=== PATIENT | male | born 1965 | race Caucasian/White ===

== ENCOUNTER 2019-01-11 05:20 | Emergency (ER) | payer MEDICAID, OTHER ==
[2019-01-11 06:45] LABS: ABS Eosinophils 0.1 10^3/ul (0-0.6); ABS Lymphocytes 1.7 10^3/ul (1.0-4.8); ABS Monocytes 0.6 10^3/ul (0-0.8); ABS Neutrophils 3.9 10^3/ul (1.5-7.7); Eosinophil % 1.1 %; Hematocrit 41 % (42-52); Hemoglobin 14.3 g/dL (14.0-18.0); Lymphocyte % 27.4 %; Mean Corpuscular HGB Conc 35 g/dL (31-36); Mean Corpuscular Hemoglobin 32 pg (27-31); Mean Corpuscular Volume 94 fL (80-94); Nucleated Red Blood Cells % 0.2; Red Blood Count 4.41 10^6 /uL (4.18-5.48); Red Cell Distribution Width 14 % (10-15); White Blood Count 6.2 10^3/uL (3.5-10.8)
[2019-01-11 06:49] LABS: INR 1.14 (0.82-1.09)
--- NOTE | 2019-01-11 06:53 | ED ---
HPI Chest Pain - HPI Summary HPI Summary: This patient is a 53-year-old male presenting to the ED with midsternal chest pain 1 week. Patient denies any shortness of breath. He states the pain is rated at 8/10, aching and stabbing intermittently. He states it is worse with ambulation, but not necessarily improved with rest. He believes he strained a muscle. Denies any history of hypertension, hypercholesterolemia. Strong family history of hypertension and PA. He states he takes no medications and is otherwise healthy. Symptoms are not better or worse with positioning. He has not taken any medication [id number] for relief. He states the symptoms have been intermittent over the past week, however has been present approximately every day. He believes this is a muscle injury as he feels tenderness to palpation over to the left side. Denies any alcohol use, patient is a heavy smoker. Denies any illicit drug use. - History of Current Complaint Chief Complaint: EDChestPainROMI Time Seen by Provider: 01/11/19 06:03 Hx Obtained From: Patient Onset/Duration: Started Days Ago Timing: Intermittent, Lasting Minutes Initial Severity: Moderate Current Severity: Moderate Pain Intensity: 8 Pain Scale Used: 0-10 Numeric Chest Pain Location: Discrete at: Chest Pain Radiates: No Character: Exertion - worse Aggravating Factor(s): Nothing Alleviating Factor(s): Nothing Associated Signs and Symptoms: Positive: Chest Pain - Risk Factors Pulmonary Embolism Risk Factors: Negative TAD Risk Factors: Negative - Allergy/Home Medications Allergies/Adverse Reactions: Allergies Allergy/AdvReac Type Severity Reaction Status Date / Time MS Penicillins [PCN] Allergy Severe Rash And Verified 01/11/19 08:48 Itching MS Morphine [Morphine] Allergy redness Verified 01/11/19 08:48 and itching local to injection site MS Codeine [Codeine] AdvReac Intermediate GI Upset Verified 01/11/19 08:48 PMH/Surg Hx/FS Hx/Imm Hx Previously Healthy: Yes Endocrine/Hematology History: Denies: Hx Anticoagulant Therapy, Hx Diabetes, Hx Thyroid Disease Cardiovascular History: Denies: Hx Hypertension, Hx Pacemaker/ICD Respiratory History: Reports: Other Respiratory Problems/Disorders - PLEURISY, HX URIs Denies: Hx Asthma, Hx Chronic Obstructive Pulmonary Disease (COPD) History: Denies: Hx Renal Disease Neurological History: Denies: Hx Dementia, Hx Seizures Psychiatric History: Denies: Hx Substance Abuse - Cancer History Cancer Type, Location and Year: N - Surgical History Surgery Procedure, Year, and Place: lt arm surgury 2004 - Immunization History Date of Tetanus Vaccine: UNKNOWN Infectious Disease History: Yes Infectious Disease History: Reports: Hx Hepatitis - Hep C, Hx Human Immunodeficiency Virus (HIV) Denies: Traveled Outside the [place] in Last 30 Days - Social History Occupation: Employed Full-time Lives: Alone Alcohol Use: Rare Hx Substance Use: No Substance Use Type: Reports: Excessive Caffeine Hx Tobacco Use: Yes Smoking Status (MU): Light Every Day Tobacco Smoker Review of Systems Constitutional: Negative Negative: Fever, Chills, Fatigue, Skin Diaphoresis Positive: Chest Pain Negative: Shortness Of Breath, Cough Negative: Abdominal Pain, Vomiting Genitourinary: Negative Positive: no symptoms reported, see HPI Negative: Arthralgia, Myalgia Skin: Negative All Other Systems Reviewed And Are Negative: Yes Physical Exam Triage Information Reviewed: Yes Vital Signs On Initial Exam: Initial Vitals Temp Pulse Resp BP Pulse Ox 96.9 F 79 20 147/80 98 01/11/19 05:24 01/11/19 05:24 01/11/19 05:24 01/11/19 05:24 01/11/19 05:24 Vital Signs Reviewed: Yes Appearance: Positive: Well-Appearing, Well-Nourished Skin: Positive: Warm, Skin Color Reflects Adequate Perfusion Head/Face: Positive: Normal Head/Face Inspection Eyes: Positive: EOMI, RICKEY Neck: Positive: Supple, No Lymphadenopathy Respiratory/Lung Sounds: Positive: Clear to Auscultation, Breath Sounds Present Cardiovascular: Positive: RRR, Pulses are Symmetrical in both Upper and Lower Extremities Abdomen Description: Positive: Nontender Bowel Sounds: Positive: Present Musculoskeletal: Positive: Normal, Strength/ROM Intact Neurological: Positive: Speech Normal Psychiatric: Positive: Normal Diagnostics - Vital Signs Vital Signs Temp Pulse Resp BP Pulse Ox 01/11/19 06:28 20 125/71 01/11/19 06:00 22 01/11/19 05:58 15 120/76 01/11/19 05:29 66 17 147/80 98 01/11/19 05:28 74 13 99 01/11/19 05:24 96.9 F 79 20 147/80 98 - Laboratory Lab Results: Lab Results 01/11/19 Range/Units 06:30 WBC 6.2 (3.5-10.8) 10^3/uL RBC 4.41 (4.18-5.48) 10^6 /uL Hgb 14.3 (14.0-18.0) g/dL Hct 41 L (42-52) % MCV 94 (80-94) fL MCH 32 H (27-31) pg MCHC 35 (31-36) g/dL RDW 14 (10-15) % Plt Count Pending MPV Pending Neut % (Auto) 62.1 % Lymph % (Auto) 27.4 % Blair % (Auto) 9.0 % Eos % (Auto) 1.1 % Baso % (Auto) 0.4 % Absolute Neuts (auto) 3.9 (1.5-7.7) 10^3/ul Absolute Lymphs (auto) 1.7 (1.0-4.8) 10^3/ul Absolute Monos (auto) 0.6 (0-0.8) 10^3/ul Absolute Eos (auto) 0.1 (0-0.6) 10^3/ul Absolute Basos (auto) 0.0 (0-0.2) 10^3/ul Absolute Nucleated RBC 0.0 10^3/ul Nucleated RBC % 0.2 Result Diagrams: 01/11/19 06:30 01/11/19 06:30 Lab Statement: Any lab studies that have been ordered have been reviewed, and results considered in the medical decision making process. Chest Pain Course/Dx - Course Course Of Treatment: During his course of treatment, the patient is evaluated for mid sternal nonradiating chest pain rated a 2/10 to a 8/10. Denies any chest pressure or tightness. States this never happened to him before. He believes he pulled a muscle last week when he was walking around town all day and is been in pain since that time. He does endorse pain is intermittent. Patient is resting comfortably as provider walks into the room. When he awakens , he is complaining of 10/10 chest pain again to the midsternal region which is nonradiating. Denies fevers, sweats, chills. Denies any shortness of breath. Denies any diaphoresis. He has not taken any medications for relief. Labs obtained including a troponin 0.00. Chest x-ray obtained: No acute cardiopulmonary findings. EKG obtained: Normal sinus rhythm with a rate of 66. On physical examination, there is pain to palpation to the left chest wall, worse with breathing deep and coughing, better with rest. EKG shows NSR. Patient be discharged with chest wall pain. Patient continues to feel discomfort to the left side only with deep palpation and deep breaths. Denies any shortness of breath. Ambulating well. Patient will be discharged with chest wall pain encouragement of ibuprofen and moist heat to the area. He is given strict return precautions. - Chest Pain Differential Diagnosis/HQI/PQRI: Acute PA, ACS, Angina, Chest Wall - Diagnoses Provider Diagnoses: Chest wall pain Discharge ED - Sign-Out/Discharge Documenting (check all that apply): Patient Departure Patient Received Moderate/Deep Sedation with Procedure: No - Discharge Plan Condition: Stable Disposition: HOME Patient Education Materials: Chest Wall Pain (ED) Referrals: Kenji Huertas MD [Primary Care Provider] - Additional Instructions: Moist heat to the area Ibuprofen 600mg three times daily as needed for pain Return to the ED for worsening symptoms - Billing Disposition and Condition Condition: STABLE Disposition: Home
[2019-01-11 06:58] LABS: Creatine Kinase 193 U/L (10-223)
[2019-01-11 07:01] LABS: Albumin 4.2 g/dL (3.2-5.2); Albumin/Globulin Ratio 1.3 (1-3); Calcium 9.5 mg/dL (8.6-10.3); EGFR African American 123.3 (>60); EGFR Non-African American 101.9 (>60); Globulin 3.2 g/dL (2-4); Potassium 4.5 mmol/L (3.5-5.0); Total Bilirubin 0.9 mg/dL (0.2-1.0); Total Protein 7.4 g/dL (6.4-8.9)
[2019-01-11 07:06] LABS: Platelet Count 86 10^3/uL (150-450)
[2019-01-11 07:14] LABS: Alcohol < 10 mg/dL (<10)
[2019-01-11 09:00] VITALS: BP 103/65
== END 2019-01-11 08:55 | disposition home or self-care (01) ==
LOC: ED 05:20
DX: R07.89 Other chest pain (principal); F17.200 Nicotine dependence, unspecified, uncomplicated; Z88.5 Allergy status to narcotic agent; Z88.0 Allergy status to penicillin
CPT/HCPCS: 36415; 71045; 80053; 80320; 82550; 84484; 85025; 85610; 93005; 99283; G0480